=== PATIENT | male | born 1975 | race African-American/Black ===

== ENCOUNTER 2021-10-06 16:23 | Emergency (ER) | payer OTHER, SELFPAY ==
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
[2021-10-06 17:50] VITALS: BP 142/95; PULSE 77; RESP 18; TEMP 35.8; O2SAT 97; BMI 25.7
[2021-10-06 20:00] VITALS: BP 119/78; PULSE 71; RESP 16; TEMP 36.9; O2SAT 99
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
== END 2021-10-06 21:41 | disposition home or self-care (01) ==
PROVIDERS: Emergency Provider Emergency Medicine; PCP Internal Medicine
DX: S00.81XA Abrasion of other part of head, initial encounter (principal); R07.81 Pleurodynia; M25.461 Effusion, right knee; G44.309 Post-traumatic headache, unspecified, not intractable; V43.52XA Car driver injured in collision with other type car in traffic accident, initial encounter; Y93.9 Activity, unspecified; Y92.410 Unspecified street and highway as the place of occurrence of the external cause; Y99.9 Unspecified external cause status
CPT/HCPCS: 70450; 71101; 73564; 99284